=== PATIENT | male | born 1975 | race African-American/Black ===

== ENCOUNTER 2022-02-05 13:32 | Emergency (ER) | payer MEDICARE, MEDICAID ==
[~2022-02-05] VITALS: Ht 175.3 cm; Wt 91.0 kg
[2022-02-05 13:48] VITALS: BP 145/95
[2022-02-05] MEDS ORDERED: TC025C15 TP (13:57)
[2022-02-05] MEDS ORDERED: ALBU6.7H9 INH (13:57)
[2022-02-05] MEDS ORDERED: MOME13HF2 INH (13:57)
== END 2022-02-05 14:15 | disposition home or self-care (01) ==
LOC: ER 13:32
DX: Z76.0 Encounter for issue of repeat prescription (principal); J45.909 Unspecified asthma, uncomplicated
CPT/HCPCS: 99283